=== PATIENT | female | born 1970 | race Two or more races ===

== ENCOUNTER 2017-12-21 06:05 | Day surgery (SDC) | payer OTHER ==
[2017-12-21] MEDS ORDERED: CODE1TAB37 PO (08:37)
[2017-12-21] MEDS ORDERED: DOXYCYCLINE HY100 MG PO (08:37)
== END 2017-12-21 14:40 | disposition home or self-care (01) ==
LOC: CIR.AMB 06:05
DX: N84.0 Polyp of corpus uteri (principal)

== ENCOUNTER 2018-01-17 08:18 | Outpatient (CLI) | payer OTHER ==
[~2018-01-17 08:18] MED LIST: CODE1TAB37 PO; DOXYCYCLINE HY100 MG PO
[2018-01-17] MEDS ORDERED: FLAX SEED OIL1000 M1 PO (15:06)
== END 2018-01-17 08:27 | disposition home or self-care (01) ==
LOC: RAD 501 08:18
DX: M84.445A Pathological fracture, left finger(s), initial encounter for fracture (principal)

== ENCOUNTER 2018-01-22 05:58 | Day surgery (SDC) | payer OTHER ==
[~2018-01-22 05:58] MED LIST changes: +FLAX SEED OIL1000 M1 PO
== END 2018-01-22 13:20 | disposition home or self-care (01) ==
LOC: CIR.AMB 05:58
DX: S62.615A Displaced fracture of proximal phalanx of left ring finger, initial encounter for closed fracture (principal); S62.617A Displaced fracture of proximal phalanx of left little finger, initial encounter for closed fracture; S66.315A Strain of extensor muscle, fascia and tendon of left ring finger at wrist and hand level, initial encounter; S66.317A Strain of extensor muscle, fascia and tendon of left little finger at wrist and hand level, initial encounter